=== PATIENT | female | born 1995 | race African-American/Black ===

== ENCOUNTER 2019-04-06 12:50 | Emergency (ER) | payer SELFPAY | END 2019-04-06 14:05 | disposition left against medical advice (07) | LOC: ER 13:33 | DX: S01.511A Laceration without foreign body of lip, initial encounter (principal); Z53.21 Procedure and treatment not carried out due to patient leaving prior to being seen by health care provider; X58.XXXA Exposure to other specified factors, initial encounter; Y93.89 Activity, other specified; Y92.89 Other specified places as the place of occurrence of the external cause; Y99.8 Other external cause status ==

== ENCOUNTER 2020-09-02 04:39 | Emergency (ER) | payer MEDICAID ==
[~2020-09-02] VITALS: Ht 162.6 cm; Wt 75.0 kg
[2020-09-02 07:48] VITALS: BP 101/58
== END 2020-09-02 08:03 | disposition home or self-care (01) ==
LOC: ER 04:39
DX: Z00.00 Encounter for general adult medical examination without abnormal findings (principal)
CPT/HCPCS: 99283